=== PATIENT | male | born 1995 | race Hispanic/Latino ===

== ENCOUNTER 2022-05-10 11:55 | Emergency (ER) | payer BC ==
[2022-05-10] MEDS ORDERED: Ketorolac 60 MG/2 ML SDV IM ONE (13:19)
== END 2022-05-10 14:15 | disposition home or self-care (01) ==
LOC: JD.ED 11:55
DX: S83.411A Sprain of medial collateral ligament of right knee, initial encounter (principal); Z79.899 Other long term (current) drug therapy; X58.XXXA Exposure to other specified factors, initial encounter
CPT/HCPCS: 73562; 96372; 99283; J1885